=== PATIENT | female | born 1990 | race Caucasian/White ===

== ENCOUNTER 2024-02-08 12:38 | Emergency (ER) | payer BC ==
--- NOTE | 2024-02-08 13:01 | ED ---
General Adult HPI - General Source: patient, RN notes reviewed Mode of arrival: ambulatory Limitations: no limitations <Camacho Wilkes - Last Filed: 02/08/24 12:59> - General Source: patient, RN notes reviewed Mode of arrival: ambulatory Limitations: no limitations <Kristal Eli - Last Filed: 02/08/24 17:45> - General Chief complaint: Nausea/Vomiting/Diarrhea Stated complaint: Vomiting Time Seen by Provider: 02/08/24 12:51 - History of Present Illness Initial comments: Quick [id number] female presents emergency department complaint of nausea vomiting early . Patient states she is unable to recently found out. She states she just moved to [place] from [place] she does not have a current with [facility]. Patient states she has had nausea vomiting for last 10 days she feels dehydrated. Denies any vaginal bleeding or vaginal spotting. Patient does admit to feeling lightheaded when she stands up. (Camacho Wilkes) This is a 33-year-old female who presents to the emergency department for nausea and vomiting in . Patient is and approximately 8 weeks . For the last 10 days she has had ongoing nausea and vomiting has been unable to keep anything down. States that she feels very dehydrated. Denies any abdominal pain or vaginal bleeding. She just moved to [place] from [place] and has not yet become established with an CAP BLOCKER. She did go to urgent care before arrival and was given a prescription for Zofran. She and her looked this up online and found that it did not necessarily appear safe in pre gnancy and did not want to take it. (Kristal Eli) - Related Data Previous Rx's Medication Instructions Recorded Doxylamine Succinate/Vit B6 1 each PO DIRECTED PRN #30 tab 02/08/24 [Doxylamine-Pyridoxine 10-10 mg] Metoclopramide [Reglan] 10 mg PO Q6H PRN #30 tab 02/08/24 Allergies Allergy/AdvReac Type Severity Reaction Status Date / Time No Known Allergies Allergy Verified 02/08/24 13:03 Review of Systems ROS Other: All systems not noted in ROS Statement are negative. <Camacho Wilkes - Last Filed: 02/08/24 12:59> ROS Other: All systems not noted in ROS Statement are negative. <Kristal Eli - Last Filed: 02/08/24 17:45> ROS Statement: Those systems with pertinent positive or pertinent negative responses have been documented in the HPI. General Exam <Camacho Wilkes - Last Filed: 02/08/24 12:59> Limitations: no limitations General appearance: alert, in no apparent distress Head exam: Present: atraumatic, normocephalic, normal inspection Respiratory exam: Present: normal lung sounds bilaterally. Absent: respiratory distress, wheezes, rales, rhonchi, stridor Cardiovascular Exam: Present: regular rate, normal rhythm, normal heart sounds. Absent: systolic murmur, diastolic murmur, rubs, gallop, clicks Neurological exam: Present: alert, oriented X3, CN II-XII intact Psychiatric exam: Present: normal affect, normal mood Skin exam: Present: warm, dry, intact, normal color. Absent: rash <Kristal Eli - Last Filed: 02/08/24 17:45> - General Exam Comments Initial Comments: Visual Physical Exam Vital signs reviewed General: Well-appearing, nontoxic, no acute distress. Head: Normocephalic, atraumatic Eyes: PERRLA, EOMI ENT: Airway patent Chest: Nonlabored breathing Skin: No visual rash, normal skin tone Neuro: Alert and oriented 3 Musculoskeletal: No gross abnormalities (Camacho Wilkes) Course Vital Signs 02/08/24 02/08/24 12:59 15:36 Temperature 99.4 F 98.4 F Pulse Rate 71 71 Respiratory 18 16 Rate Blood Pressure 148/88 144/84 O2 Sat by Pulse 98 100 Oximetry Medical Decision Making <Camacho Wilkes - Last Filed: 02/08/24 12:59> - Lab Data Result diagrams: 02/08/24 13:21 02/08/24 13:21 <Kristal Eli - Last Filed: 02/08/24 17:45> - Medical Decision Making I completed the quick note portion of this chart signed Camacho Wilkes PA-C (Camacho Wilkes) This is a 33 year old female who presents to the emergency department for nausea and vomiting in . Was pt. sent in by a medical professional or institution? @ -No Did you speak to anyone other than the patient for history? @ -No Did you review nursing and triage notes? @ -Yes, and I agree, it is accurate with regards to the patient's symptoms. Were old charts reviewed? @ -No Differential Diagnosis? @ -Differential Nausea and Vomiting: Gastroenteritis, cholecystitis, appendicitis, pancreatitis, migraine, benign positional vertigo, food borne illness, pyelonephritis, irritable bowel syndrome, influenza, Covid, GERD, incarcerated hernia, intestinal obstruction, this is not meant to be an all-inclusive list. EKG interpreted by me (3pts min.)? @ -Not obtained X-rays interpreted by me (1pt min.)? @ -Not obtained CT interpreted by me (1pt min.)? @ -Not obtained U/S interpreted by me (1pt. min.)? @ -Not obtained What testing was considered but not performed? (CT, X-rays, U/S, labs)? Why? @ -None What meds were considered but not given? Why? @ -None Did you discuss the management of the patient with other professionals? @ -No Did you reconcile home meds? @ -No Was smoking cessation discussed for >3mins.? @ -No Was critical care preformed (if so, how long)? @ -No Were there social determinants of health that impacted care today? How? (Homelessness, low income, unemployed, alcoholism, drug addiction, transportation, low edu. Level, literacy, decrease access to med. care, shelter, rehab)? @ -No Was there de-escalation of care discussed even if they declined? (Discuss DNR or withdrawal of care, Hospice)? @ -No What co-morbidities impacted this encounter? (DM, HTN, Smoking, COPD, CAD, Cancer, CVA, Hep., AIDS, mental health diagnosis, sleep apnea, morbid obesity)? @ - Was patient admitted / discharged? @ -Discharged. Lab work demonstrates mild leukocytosis and was otherwise unremarkable. She was treated with IV fluids, Benadryl, vitamin B6, and Reglan, with significant improvement in symptoms. She was tolerating oral intake afterwards. Prescription for Diclegis and Reglan provided. Advised starting with the Diclegis and using the Reglan if needed. Information for follow-up with CAP BLOCKER provided as well. Advised she slowly advance her diet as tolerated and remain well-hydrated. Patient discharged home in stable condition. Case discussed with ED attending Dr. Mackey. Return precautions reviewed in depth, the patient is instructed to return to the emergency department with any new, worsening, or concerning symptoms. Patient verbalized understanding. Undiagnosed new problem with uncertain prognosis? @ -None Drug Therapy requiring intensive monitoring for toxicity (Heparin, Nitro, Insulin, Cardizem)? @ -None Were any procedures done? @ -None Diagnosis/symptom? @ -Nausea and vomiting Acute, or Chronic, or Acute on Chronic? @ -Acute Uncomplicated (without systemic symptoms) or Complicated (systemic symptoms)? @ -Uncomplicated Side effects of treatment? @ -None Exacerbation, Progression, or Severe Exacerbation] @ -Not applicable Poses a threat to life or bodily function? @ -No (Kristal Eli) - Lab Data Lab Results 02/08/24 02/08/24 02/08/24 Range/Units 12:56 13:21 13:21 WBC 11.9 H (3.8-10.6) k/uL RBC 4.58 (3.80-5.40) m/uL Hgb 14.4 (11.4-16.0) gm/dL Hct 42.3 (34.0-46.0) % MCV 92.4 (80.0-100.0) fL MCH 31.5 (25.0-35.0) pg MCHC 34.1 (31.0-37.0) g/dL RDW 11.6 (11.5-15.5) % Plt Count 224 (150-450) k/uL MPV 8.1 Neutrophils % 81 % Lymphocytes % 11 % Monocytes % 6 % Eosinophils % 1 % Basophils % 0 % Neutrophils # 9.6 H (1.3-7.7) k/uL Lymphocytes # 1.3 (1.0-4.8) k/uL Monocytes # 0.7 (0-1.0) k/uL Eosinophils # 0.1 (0-0.7) k/uL Basophils # 0.0 (0-0.2) k/uL Sodium 137 (137-145) mmol/L Potassium 4.0 (3.5-5.1) mmol/L Chloride 105 (98-107) mmol/L Carbon Dioxide 25 (22-30) mmol/L Anion Gap 7 mmol/L BUN 14 (7-17) mg/dL Creatinine 0.54 (0.52-1.04) mg/dL Est GFR (CKD-EPI)AfAm >90 (>60 ml/min/1.73 sqM) Est GFR (CKD-EPI)NonAf >90 (>60 ml/min/1.73 sqM) Glucose 98 (74-99) mg/dL Calcium 10.0 (8.4-10.2) mg/dL Magnesium 1.8 (1.6-2.3) mg/dL Total Bilirubin 0.7 (0.2-1.3) mg/dL AST 20 (14-36) U/L ALT 16 (4-34) U/L Alkaline Phosphatase 51 (38-126) U/L Total Protein 7.6 (6.3-8.2) g/dL Albumin 4.9 (3.5-5.0) g/dL HCG, Quant 190332.0 mIU/mL Urine Color Urine Appearance (Clear) Urine pH (5.0-8.0) Ur Specific [place] (1.001-1.035) Urine Protein (Negative) Urine Glucose (UA) (Negative) Urine Ketones (Negative) Urine Blood (Negative) Urine Nitrite (Negative) Urine Bilirubin (Negative) Urine Urobilinogen (<2.0) mg/dL Ur Leukocyte Esterase (Negative) Urine RBC (0-5) /hpf Urine WBC (0-5) /hpf Ur Squamous Epith Cells (0-4) /hpf Urine Bacteria (None) /hpf Hyaline Casts (0-2) /lpf Urine Mucus (None) /hpf Blood Type O Positive Blood Type Confirm Blood Type Recheck No Previous Record Bld Type Recheck Status CABO Indicated 02/08/24 02/08/24 Range/Units 13:34 14:40 WBC (3.8-10.6) k/uL RBC (3.80-5.40) m/uL Hgb (11.4-16.0) gm/dL Hct (34.0-46.0) % MCV (80.0-100.0) fL MCH (25.0-35.0) pg MCHC (31.0-37.0) g/dL RDW (11.5-15.5) % Plt Count (150-450) k/uL MPV Neutrophils % % Lymphocytes % % Monocytes % % Eosinophils % % Basophils % % Neutrophils # (1.3-7.7) k/uL Lymphocytes # (1.0-4.8) k/uL Monocytes # (0-1.0) k/uL Eosinophils # (0-0.7) k/uL Basophils # (0-0.2) k/uL Sodium (137-145) mmol/L Potassium (3.5-5.1) mmol/L Chloride (98-107) mmol/L Carbon Dioxide (22-30) mmol/L Anion Gap mmol/L BUN (7-17) mg/dL Creatinine (0.52-1.04) mg/dL Est GFR (CKD-EPI)AfAm (>60 ml/min/1.73 sqM) Est GFR (CKD-EPI)NonAf (>60 ml/min/1.73 sqM) Glucose (74-99) mg/dL Calcium (8.4-10.2) mg/dL Magnesium (1.6-2.3) mg/dL Total Bilirubin (0.2-1.3) mg/dL AST (14-36) U/L ALT (4-34) U/L Alkaline Phosphatase (38-126) U/L Total Protein (6.3-8.2) g/dL Albumin (3.5-5.0) g/dL HCG, Quant mIU/mL Urine Color Yellow Urine Appearance Cloudy H (Clear) Urine pH 5.5 (5.0-8.0) Ur Specific [place] 1.033 (1.001-1.035) Urine Protein Trace H (Negative) Urine Glucose (UA) Negative (Negative) Urine Ketones 3+ H (Negative) Urine Blood Negative (Negative) Urine Nitrite Negative (Negative) Urine Bilirubin Negative (Negative) Urine Urobilinogen <2.0 (<2.0) mg/dL Ur Leukocyte Esterase Small H (Negative) Urine RBC 3 (0-5) /hpf Urine WBC 6 H (0-5) /hpf Ur Squamous Epith Cells 1 (0-4) /hpf Urine Bacteria Rare H (None) /hpf Hyaline Casts 1 (0-2) /lpf Urine Mucus Many H (None) /hpf Blood Type Blood Type Confirm O Positive Blood Type Recheck Bld Type Recheck Status Disposition <Camacho Wilkes - Last Filed: 02/08/24 12:59> Is patient prescribed a controlled substance at d/c from ED?: No Time of Disposition: 15:23 <MattKristal guzman - Last Filed: 02/08/24 17:45> Clinical Impression: Nausea and vomiting during Disposition: HOME SELF-CARE Instructions (If sedation given, give patient instructions): Doxylamine/Pyridoxine (By mouth), Nausea and Vomiting in (ED), Acute Nausea and Vomiting (ED) Additional Instructions: Return to the emergency department with any new, worsening, or concerning symptoms. Start taking the doxylamine/pyridoxine as 2 tablets at bedtime. If that is not effective you can take one in the morning and one in the middle of the day as well. If that medication itself is not effective the Reglan can be taken up to every 6 hours as needed for nausea and vomiting. Slowly advance your diet as tolerated and remain hydrated. Become established with an CAP BLOCKER for ongoing obstetrics care. Prescriptions: Doxylamine Succinate/Vit B6 [Doxylamine-Pyridoxine 10-10 mg] 1 each PO DIRECTED PRN #30 tab PRN Reason: Nausea And Vomiting Metoclopramide [Reglan] 10 mg PO Q6H PRN #30 tab PRN Reason: Nausea And Vomiting Referrals: None,Stated [Primary Care Provider] - 1-2 days Gabriela Childers MD [STAFF PHYSICIAN] - 1-2 days
[2024-02-08 13:03] VITALS: PULSE 71
[2024-02-08 13:30] LABS: Basophils % (A) 0 %; Eosinophils # (A) 0.1 k/uL (0-0.7); Eosinophils % (A) 1 %; HCT 42.3 % (34.0-46.0); HGB 14.4 gm/dL (11.4-16.0); Lymphocytes # (A) 1.3 k/uL (1.0-4.8); Lymphocytes % (A) 11 %; MCH 31.5 pg (25.0-35.0); MCHC 34.1 g/dL (31.0-37.0); MCV 92.4 fL (80.0-100.0); Mean Platelet Volume 8.1; Monocytes # (A) 0.7 k/uL (0-1.0); Monocytes % (A) 6 %; Neutrophils # (A) 9.6 k/uL (1.3-7.7); Neutrophils % (A) 81 %; Platelet Count 224 k/uL (150-450); RBC 4.58 m/uL (3.80-5.40); RDW 11.6 % (11.5-15.5); WBC 11.9 k/uL (3.8-10.6)
[2024-02-08] MEDS: SODIUM CHLORIDE 0.9% 2,000 ML IV ONE (13:31)
[2024-02-08 13:43] LABS: ALT 16 U/L (4-34); AST 20 U/L (14-36); African American GFR (CKD) >90 (>60 ml/min/1.73 sqM); Albumin 4.9 g/dL (3.5-5.0); Alkaline Phosphatase 51 U/L (38-126); Anion Gap 7 mmol/L; Blood Urea Nitrogen 14 mg/dL (7-17); Carbon Dioxide 25 mmol/L (22-30); Chloride 105 mmol/L (98-107); Glucose 98 mg/dL (74-99); Magnesium 1.8 mg/dL (1.6-2.3); Non-African American GFR(CKD) >90 (>60 ml/min/1.73 sqM); Sodium 137 mmol/L (137-145); Total Bilirubin 0.7 mg/dL (0.2-1.3); Total Protein 7.6 g/dL (6.3-8.2)
[2024-02-08] MEDS: diphenhydrAMINE 50 MG/ML 1 ML VIAL IVP STA (13:57)
[2024-02-08] MEDS: METOCLOPRAMIDE 5 MG/ML 2 ML VIAL IVP STA (13:58)
[2024-02-08] MEDS: PYRIDOXINE 100 MG/ML 1 ML VIAL IVP STA (14:35)
[2024-02-08 15:01] LABS: Appearance,Urine Cloudy (Clear); Bacteria,Urine Rare /hpf; Bilirubin,Urine Negative (Negative); Blood,Urine Negative (Negative); Color,Urine Yellow; Glucose,Urine (UA) Negative (Negative); Hyaline Casts,Urine 1 /lpf (0-2); Ketones,Urine 3+ (Negative); Leukocyte Esterase,Urine Small (Negative); Mucus,Urine Many /hpf; Nitrite,Urine Negative (Negative); PH, Urine 5.5 (5.0-8.0); Protein,Urine Trace (Negative); RBC,Urine 3 /hpf (0-5); Specific Gravity,Urine 1.033 (1.001-1.035); Squamous Epithelial Cell,Urine 1 /hpf (0-4); Urobilinogen,Urine <2.0 mg/dL (<2.0); WBC,Urine 6 /hpf (0-5)
[2024-02-08 15:44] VITALS: BP 144/84; RESP 16; TEMP 98.4
== END 2024-02-08 15:44 | disposition home or self-care (01) ==
LOC: EC 12:38
CPT/HCPCS: 36415; 80053; 81001; 83735; 84702; 85025; 86900; 86901; 96361; 96374; 96375; 99283

== ENCOUNTER 2024-03-22 18:20 | Emergency (ER) | payer BC ==
[2024-03-22 18:48] VITALS: BP 144/84; PULSE 92; RESP 18; TEMP 98.1
[2024-03-22] MEDS ORDERED: ACETAMINOPHEN TAB 500 MG TAB PO STA (19:18)
[2024-03-22] MEDS ORDERED: METOCLOPRAMIDE 5 MG/ML 2 ML VIAL IVP STA (19:18)
[2024-03-22] MEDS ORDERED: diphenhydrAMINE 50 MG/ML 1 ML VIAL IVP STA (19:18)
--- NOTE | 2024-03-22 19:26 | ED ---
General Adult HPI - General Chief complaint: Headache Stated complaint: Headache-14 weeks preg Time Seen by Provider: 03/22/24 19:04 Source: patient, family, RN notes reviewed Mode of arrival: ambulatory Limitations: no limitations - History of Present Illness Initial comments: 33-year-old female at 14 weeks gestation [facility] headache. Patient reports that this started 3 days ago without any aggravating or alleviating factors. She notes that it is mostly on the left side of her head. She reports that she has tried warm baths, hot packs and cold packs, neck massage without any relief. Patient is also reporting discomfort in her right lower abdomen. She notes that it feels similar to pain she had when she had an ovarian cyst in the past. Admits to photophobia. She denies recent fever, chills, nausea, vomiting. She denies urinary frequency, dysuria. Denies any vaginal bleeding. She reports following with [facility]. - Related Data Previous Rx's Medication Instructions Recorded Doxylamine Succinate/Vit B6 1 each PO DIRECTED PRN #30 tab 02/08/24 [Doxylamine-Pyridoxine 10-10 mg] Metoclopramide [Reglan] 10 mg PO Q6H PRN #30 tab 02/08/24 Allergies Allergy/AdvReac Type Severity Reaction Status Date / Time No Known Allergies Allergy Verified 03/22/24 18:44 Review of Systems ROS Statement: Those systems with pertinent positive or pertinent negative responses have been documented in the HPI. ROS Other: All systems not noted in ROS Statement are negative. Past Medical History Past Medical History: No Reported History Additional Past Surgical History / Comment(s): Stephen michael 2016 Smoking Status: Never smoker Past Alcohol Use History: None Reported Past Drug Use History: Marijuana General Exam Limitations: no limitations General appearance: alert, in distress (d/t pain) Head exam: Present: atraumatic, normocephalic, normal inspection Eye exam: Present: normal appearance, PERRL, EOMI. Absent: scleral icterus, conjunctival injection, periorbital swelling ENT exam: Present: normal exam, mucous membranes moist Neck exam: Present: normal inspection. Absent: tenderness, meningismus, lymphadenopathy Respiratory exam: Present: normal lung sounds bilaterally. Absent: respiratory distress, wheezes, rales, rhonchi, stridor Cardiovascular Exam: Present: regular rate, normal rhythm, normal heart sounds. Absent: systolic murmur, diastolic murmur, rubs, gallop, clicks GI/Abdominal exam: Present: soft, normal bowel sounds. Absent: distended, tenderness, guarding, rebound, rigid Extremities exam: Present: normal inspection, full ROM, normal capillary refill. Absent: tenderness, pedal edema, joint swelling, calf tenderness Back exam: Present: normal inspection Neurological exam: Present: alert, oriented X3, CN II-XII intact Psychiatric exam: Present: normal affect, normal mood Skin exam: Present: warm, dry, intact, normal color. Absent: rash Course Vital Signs 03/22/24 18:44 Temperature 98.1 F Pulse Rate 92 Respiratory 18 Rate Blood Pressure 144/84 O2 Sat by Pulse 98 Oximetry Medical Decision Making - Medical Decision Making Was pt. sent in by a medical professional or institution (, PA, CHANGEOVER OPERATOR, urgent care, hospital, or [facility]...) When possible be specific @ -No Did you speak to anyone other than the patient for history (EMS, parent, family, police, friend...)? What history was obtained from this source @ -No Did you review nursing and triage notes (agree or disagree)? Why? @ -I reviewed and agree with nursing and triage notes Were old charts reviewed (outside hosp., previous admission, EMS record, old EKG, old radiological studies, urgent care reports/EKG's, [facility] records)? Report findings @ -No old charts were reviewed Differential Diagnosis (chest pain, altered mental status, abdominal pain women, abdominal pain men, vaginal bleeding, weakness, fever, dyspnea, syncope, headache, dizziness, GI bleed, back pain, seizure, CVA, palpatations, mental health, musculoskeletal)? @ -Differential Headache: Migraine, tension, cluster, carbon monoxide, central venous thrombosis, pension karma temporal arteritis, acute closure glaucoma, intercranial hemorrhage, mastoiditis, sinusitis, head injury, this is not meant to be an all-inclusive list. EKG interpreted by me (3pts min.). @ -None X-rays interpreted by me (1pt min.). @ -None done CT interpreted by me (1pt min.). @ -None done U/S interpreted by me (1pt. min.). @ -None done What testing was considered but not performed or refused? (CT, X-rays, U/S, labs)? Why? @ -Laboratory studies and ultrasound were ordered, patient left AGAINST MEDICAL ADVICE prior to receiving workup What meds were considered but not given or refused? Why? @ -None Did you discuss the management of the patient with other professionals (professionals i.e. Dr., PA, CHANGEOVER OPERATOR, lab, RT, psych nurse, social media content manager, fire fighter, teacher, commanding officer traffic division, case investigator)? Give summary @ -No Was smoking cessation discussed for >3mins.? @ -No Was critical care preformed (if so, how long)? @ -No Were there social determinants of health that impacted care today? How? (Homelessness, low income, unemployed, alcoholism, drug addiction, transportation, low edu. Level, literacy, decrease access to med. care, shelter, rehab)? @ -No Was there de-escalation of care discussed even if they declined (Discuss DNR or withdrawal of care, Hospice)? DNR status @ -No What co-morbidities impacted this encounter? (DM, HTN, Smoking, COPD, CAD, Cancer, CVA, ARF, Chemo, Hep., AIDS, mental health diagnosis, sleep apnea, morbid obesity)? @ -None Was patient admitted / discharged? Hospital course, mention meds given and route, prescriptions, significant lab abnormalities, going to OR and other pertinent info. @ -Left against medical advice. Patient presented to the emergency department for evaluation of headache 14 weeks . Patient's neurological examination unremarkable. Discussed orders laboratory studies including CBC, CMP, magnesium, LDH, uric acid, UA and treatment plan. Patient did not want to wait further for workup and requested to leave. Patient signed out against medical advice. Undiagnosed new problem with uncertain prognosis? @ -No Drug Therapy requiring intensive monitoring for toxicity (Heparin, Nitro, Insulin, Cardizem)? @ -No Were any procedures done? @ -No Diagnosis/symptom? @ -Headache, left against medical advice Acute, or Chronic, or Acute on Chronic? @ -Acute Uncomplicated (without systemic symptoms) or Complicated (systemic symptoms)? @ -Default Side effects of treatment? @ -No Exacerbation, Progression, or Severe Exacerbation? @ -No Poses a threat to life or bodily function? How? (Chest pain, USA, CT, pneumonia, PE, COPD, DKA, ARF, appy, cholecystitis, CVA, Diverticulitis, Homicidal, Suicidal, threat to staff... and all critical care pts) @ - Disposition Clinical Impression: Left against medical advice Disposition: LEFT AGAINST MEDICAL ADVICE Is patient prescribed a controlled substance at d/c from ED?: No Referrals: None,Stated [Primary Care Provider] - 1-2 days
== END 2024-03-22 19:54 | disposition left against medical advice (07) ==
LOC: EC 18:20
DX: O26.892 Other specified pregnancy related conditions, second trimester (principal); R51.9 Headache, unspecified; Z3A.14 14 weeks gestation of pregnancy; Z53.29 Procedure and treatment not carried out because of patient's decision for other reasons
CPT/HCPCS: 99283